=== PATIENT | female | born 1955 | race Caucasian/White ===

== ENCOUNTER 2022-06-16 19:47 | Outpatient (CLI) | payer MEDICARE, BC, SELFPAY ==
--- NOTE | 2022-06-24 12:41 | W.PM.SLEEP ---
Sleep Study Details Details Interpreting Provider: Eran Krishnamurthy MD Date of Sleep Study: 06/16/22 Sleep Study Details: STUDY TYPE:? Home ? BMI:? Not reported ORDERING PROVIDER:? Opal INDICATION:? Concerns about sleep apnea ? SLEEP SUMMARY:? Monitor time 542 minutes RESPIRATORY SUMMARY:? AHI of 5.3. Majority of data was obtained in the supine position. Low oxygen was 76. 12.9% of the study oxygen was less than 90% and 0.6% of the study oxygen was less than 85% PERIODIC LIMB MOVEMENTS OF SLEEP:? Not recorded CARDIAC:? 51-200, mean 71.3 IMPRESSION:? Significant tachycardia was noted with a high heart rate of 200. Further cardiovascular evaluation may be indicated Mild obstructive sleep apnea with an AHI of 5.3. Significant desaturations with over 13% of the study oxygen level below 90%. Would recommend overnight oximetry after treatment of the sleep apnea as the patient may qualify for nocturnal oxygen. RECOMMENDATION: Would recommend an in-lab titration for this patient because of the significant hypo oxygenation. Further cardiac evaluation is likely indicated.
== END 2022-06-16 19:48 | disposition home or self-care (01) ==
PROVIDERS: Visit Provider Otolaryngology
DX: R06.81 Apnea, not elsewhere classified (principal); R00.0 Tachycardia, unspecified; G47.19 Other hypersomnia
CPT/HCPCS: 95806